=== PATIENT | male | born 1965 | race Caucasian/White ===

== ENCOUNTER 2020-11-27 12:02 | Emergency (ER) | payer OTHER, SELFPAY ==
[2020-11-27 12:29] LABS: #Basophils 0.1 thou/uL (0.0-0.2); #Eosinphils 0.2 thou/uL (0.0-0.7); #Lymphocytes 1.7 thou/uL (1.20-3.40); #Monocytes 0.5 thou/uL (0.11-0.59); #Neutrophils 4.4 thou/uL (1.40-6.50); %Basophils 0.9 % (0.0-1.0); %Eosinophils 3.1 % (0.0-10.0); %Lymphocytes 25.3 % (21.0-51.0); %Neutrophils 63.6 % (42.0-75.0); Hemoglobin 15.2 g/dL (14.0-18.0); Mean Corpuscular HGB CONC 34.5 g/dL (32.0-36.0); Mean Corpuscular Hemoglobin 30.6 pg (27.0-31.0); Mean Corpuscular Volume 88.6 fL (78.0-98.0); Mean Platelet Volume 8.6 fL (7.4-10.4); Platelet Count 172 thou/uL (130-400); RBC Distribution Width 10.8 % (11.5-14.5); Red Blood Cell (RBC) Count 4.98 mill/uL (4.70-6.10); White Blood Cell (WBC) Count 6.9 thou/uL (4.8-10.8)
[2020-11-27 12:36] LABS: PTT 31.2 sec (22.9-36.1); Prothrombin Time 13.2 sec (12.0-14.7)
[2020-11-27 12:44] LABS: ALT (SGPT) 32 U/L (8-55); AST (SGOT) 20 U/L (5-34); Albumin 4.3 g/dL (3.5-5.0); Alkaline Phosphatase 70 U/L (40-110); Anion Gap 17 mmol/L (10-20); BUN (Urea Nitrogen) 8 mg/dL (8.4-25.7); Bilirubin, Total 0.5 mg/dL (0.2-1.2); CK (CPK) 580 U/L (30-200); Calc. Creatinine Clearance 0 mL/min (70-130); Calcium 9.2 mg/dL (7.8-10.44); Carbon Dioxide 21 mmol/L (22-29); Chloride 103 mmol/L (98-107); Globulin 2.8 g/dL (2.4-3.5); Glucose 271 mg/dL (70-105); Potassium 3.9 mmol/L (3.5-5.1); Protein, Total 7.1 g/dL (6.0-8.3); Sodium 137 mmol/L (136-145)
--- NOTE | 2020-11-27 12:53 | CT ---
Exam: Head CT without contrast HISTORY: Right-sided weakness, numbness and tingling. COMPARISON: none FINDINGS: Hemorrhage: No intraparenchymal hemorrhage or extra-axial hematoma. Brain parenchyma: Cortical horton-white matter differentiation is preserved. No mass effect or midline shift. Basilar cisterns are patent. Ventricular system: Ventricles and sulci are patent and symmetric. Calvarium: Intact. Sinuses and mastoid air cells: Adequate aeration. IMPRESSION: No acute intracranial process. Results study discussed with Dr. Cha 11/27/2020 at 12:49 PM Code CR
--- NOTE | 2020-11-27 13:13 | RAD ---
EXAM: Portable chest PROVIDED CLINICAL HISTORY: Right-sided weakness COMPARISON: None FINDINGS: Cardiac and mediastinal silhouette is within normal limits. No focal consolidation, pleural fluid or pneumothorax evident. IMPRESSION: No evidence for an acute cardiopulmonary process.
[2020-11-27] MEDS ORDERED: Aspirin Chewable 81 MG TAB ONE (15:05)
== END 2020-11-27 15:11 | disposition left against medical advice (07) ==
LOC: NAV ERS 12:02
DX: E11.65 Type 2 diabetes mellitus with hyperglycemia (principal); R20.2 Paresthesia of skin; F17.210 Nicotine dependence, cigarettes, uncomplicated; E78.5 Hyperlipidemia, unspecified
CPT/HCPCS: 36416; 70450; 71045; 80053; 82550; 84484; 85025; 85610; 85730; 93005; 94760

== ENCOUNTER → 2020-12-21 | Emergency (ER) | payer SELFPAY ==
[2020-12-23 05:43] LABS: CKMB 4.4 ng/mL (0-6.6)
[2020-12-23 05:44] LABS: Troponin I 0.118 ng/mL (< 0.028)
[2020-12-23 05:51] LABS: %Neutrophils 71.1 % (42.0-75.0); Hemoglobin 16.3 g/dL (14.0-18.0); Manual Diff?? NO; Mean Corpuscular HGB CONC 34.5 g/dL (32.0-36.0); Mean Corpuscular Hemoglobin 30.4 pg (27.0-31.0); Mean Corpuscular Volume 88.2 fL (78.0-98.0); Mean Platelet Volume 8.1 fL (7.4-10.4); Platelet Count 209 thou/uL (130-400); RBC Distribution Width 10.8 % (11.5-14.5); Red Blood Cell (RBC) Count 5.35 mill/uL (4.70-6.10); White Blood Cell (WBC) Count 9.7 thou/uL (4.8-10.8)
[2020-12-23 05:52] LABS: #Basophils 0.1 thou/uL (0.0-0.2); #Eosinphils 0.2 thou/uL (0.0-0.7); #Lymphocytes 1.9 thou/uL (1.20-3.40); #Monocytes 0.6 thou/uL (0.11-0.59); #Neutrophils 6.9 thou/uL (1.40-6.50); %Basophils 0.6 % (0.0-1.0); %Eosinophils 2.4 % (0.0-10.0); %Monocytes 5.8 % (0.0-10.0); PTT 33.7 sec (22.9-36.1); Prothrombin Time 12.8 sec (12.0-14.7); Sodium 139 mmol/L (136-145)
[2020-12-23 05:53] LABS: ALT (SGPT) 40 U/L (8-55); AST (SGOT) 26 U/L (5-34); Albumin 4.6 g/dL (3.5-5.0); Alkaline Phosphatase 74 U/L (40-110); Anion Gap 20 mmol/L (10-20); BUN (Urea Nitrogen) 24 mg/dL (8.4-25.7); Bilirubin, Total 0.5 mg/dL (0.2-1.2); Calc. Creatinine Clearance 0 mL/min (70-130); Calcium 10.6 mg/dL (7.8-10.44); Carbon Dioxide 25 mmol/L (22-29); Chloride 99 mmol/L (98-107); Globulin 3.5 g/dL (2.4-3.5); Glucose 230 mg/dL (70-105); Potassium 4.5 mmol/L (3.5-5.1); Protein, Total 8.1 g/dL (6.0-8.3)
== END ==
LOC: NAV ERS 11:30
DX: I21.4 Non-ST elevation (NSTEMI) myocardial infarction (principal); E11.9 Type 2 diabetes mellitus without complications; I10 Essential (primary) hypertension; E78.00 Pure hypercholesterolemia, unspecified; F17.220 Nicotine dependence, chewing tobacco, uncomplicated; Z79.84 Long term (current) use of oral hypoglycemic drugs; Z79.899 Other long term (current) drug therapy
CPT/HCPCS: 71046; 80053; 82553; 83880; 84484; 85025; 85610; 85730; 96372